=== PATIENT | female | born 1960 | race Caucasian/White ===

== ENCOUNTER 2016-09-11 06:21 | Day surgery (SDC) | payer MEDICARE ==
[~2016-09-11] VITALS: Ht 165.1 cm; Wt 90.7 kg
[~2016-09-11 06:21] MED LIST: COMBIVENT INH14.7 GM INH; LIPITOR10 MG PO; MOBIC7.5 MG PO; NEXIUM40 MG PO; NORCO 5/325 TAB1 TA1 PO; NORCO 7.5-3251 EACH PO; PROAIR HFA8.5 GM INH; VESICARE10 MG PO
[2016-09-11 06:45] LABS: HEMATOCRIT 37.7 % (36.0-48.0); HEMOGLOBIN 11.5 g/dL (12-16); MCH 21.8 pg (26.0-34.0); MCHC 30.5 g/dL (31.0-37.0); MCV 71.4 fL (80.0-100.0); RBC 5.28 10x6/uL (4.00-5.40); RDW 16.4 % (11.5-14.5); WBC 10.9 10x3/uL (4.8-10.8)
[2016-09-11 07:12] VITALS: BP 120/68; Ht 165.1 cm; Wt 90.7 kg
--- NOTE | 2016-09-11 15:03 | NUR ---
1355-PT. ESCORTED VIA WHEELCHAIR TO PERSONAL CAR, LEFT WITH FAMILY MEMBER DRIVING.
--- NOTE | 2016-11-07 10:17 | OP ---
PATIENT NAME: CLEO PENN MEDICAL RECORD: [id number] :58 LOCATION:[facility] ADMISSION DATE: SURGEON: CHERELLE VIVAS MD DATE OF OPERATION: 09/11/2016 PREOPERATIVE DIAGNOSIS: Anal mass. POSTOPERATIVE DIAGNOSIS: Anal mass. PROCEDURE: Single column hemorrhoidectomy with excision of the anal mass. SURGEON: Cherelle Vivas MD PRODUCTION EXPEDITER: None. BLOOD LOSS: Minimal. ANESTHESIA: General. COMPLICATIONS: None. This is a pedunculated verrucous mass, which was at 6 o'clock with the patient in the lithotomy position. OPERATIVE COURSE: The patient was conveyed to the operating room electively on 10/08/2016. General anesthesia was induced by the anesthesia staff. The patient was placed in the lithotomy position. The anus and perianal areas were sterilely prepped and draped. U-shaped anal retractors were placed within the anus. A fixation suture of 3-0 Vicryl was applied at the apex of the internal hemorrhoidal bundle. I then incised the anoderm with the Harmonic scalpel. I swept down the anal sphincter musculature to protect it during the procedure. I then excised the mass along with the hemorrhoidal bundle utilizing the Harmonic scalpel. It was difficult to orient the mass due to its very pedunculated nature. Submucosal flaps were created sharply. I then closed the defect with a running 3-0 Vicryl suture for the anal mucosa and then the same suture in a running intracuticular fashion for the anoderm. I then reinforced the suture line with multiple interrupted horizontal mattress 3-0 Vicryl sutures. A combination of a sterile preparation of Marcaine were used to infiltrate the perianal tissues. Gelfoam was applied within the anus and rectum. A topical anesthetic was applied to the external hemorrhoids. The patient was then extubated and conveyed to post-anesthesia care unit where she was in a stable condition. She will be dismissed home on Colace, Valium as well as hydrocodone. TRANSINT:[id number] Voice Confirmation ID: [id number] DOCUMENT ID: [id number] OPERATIVE REPORT [id number] NASREEN PENNCHERELLE ANTONY MD at 1017 CC: LEONID HAMILTON MD and RYLIE SXAENA M.D. [id number] DICTATION DATE: 09/11/16 1148 MECHANICAL ESTIMATOR: 09/11/16 1200 [facility] 09/11/16 [place] [id number] [place] [id number]
--- NOTE | 2016-11-07 10:17 | HP ---
PATIENT: CLEO PENN MEDICAL RECORD: [id number] ACCOUNT: [id number] LOCATION:[facility] : 58 ADMISSION DATE: 09/11/16 HISTORY AND PHYSICAL EXAMINATION CHIEF COMPLAINT: Anal mass. HISTORY OF PRESENT ILLNESS: The patient has an anal mass that was noted by Dr. Sainz during her recent endoscopy. I have been asked to perform an excisional biopsy. This would essentially be a single column hemorrhoidectomy. The risks, possible complications and alternatives to procedure were explained to the patient. She elects to proceed. HOME MEDICATIONS: Mobic as well as Nexium. ALLERGIES: PENICILLIN WHICH CAUSES HIVES, CODEINE WHICH CAUSES ITCHING, WELL CEPHALEXIN. Reportedly, the patient can take hydrocodone, however. SOCIAL HISTORY: A [id number] smoking history. PAST MEDICAL AND SURGICAL HISTORY: Cholecystectomy, hernia repair, gastroesophageal reflux which is controlled. REVIEW OF SYSTEMS: Negative for CVA or seizures. Negative for diabetes or thyroid problems. Negative for renal disease or hepatitis. PHYSICAL EXAMINATION: GENERAL: The patient does not appear acutely ill. She does not appear chronically ill. VITAL SIGNS: Reviewed. HEAD: External ears appear normal. EYES: Extraocular movements are intact. NECK: Trachea is midline. CHEST: No intercostal retractions. PULMONARY: Nonlabored and no stridor. ABDOMEN: Nontender. EXTREMITIES: No peripheral cyanosis. IMPRESSION: Anal mass. PLAN: Will be single column hemorrhoidectomy with excision of the anal mass. TRANSINT:[id number] Voice Confirmation ID: [id number] DOCUMENT ID: [id number] CHERELLE VIVAS MD at 1017 CC: LEONID SAINZ MD and RYLIE SAXENA M.D. [id number] DICTATION DATE: 09/11/16 1144 SAUSAGE COOKER: 09/11/16 1154 [facility] 09/11/16 [place] [id number]
== END 2016-09-11 13:55 | disposition home or self-care (01) ==
LOC: D.OPS 06:21 → D.PAN 08:15 → D.OPS 08:15 → D.PAN 08:45 → D.OPS 13:55
PROVIDERS: Anesthesiology
DX: B07.9 Viral wart, unspecified (principal); K64.8 Other hemorrhoids; Z79.1 Long term (current) use of non-steroidal anti-inflammatories (NSAID); Z79.899 Other long term (current) drug therapy; Z88.0 Allergy status to penicillin; Z88.5 Allergy status to narcotic agent

== ENCOUNTER 2020-12-22 17:15 | Inpatient (IN) | payer MEDICARE ==
[~2020-12-22] VITALS: Ht 165.1 cm; Wt 72.6 kg
--- NOTE | 2020-12-22 17:56 | NUR ---
PATIENT IV STARTED IN LEFT FA AT THIS TIME. 20G. IV X 1 STICK. PATIENT TOLERATED WITH NO PAIN. CALL LIGHT WITHIN REACH.
[2020-12-22 19:16] LABS: BASOPHILS 0.4 % (0-2); EOSINOPHILS 0.4 % (0-7); IMMATURE GRANULOCYTES 0.1 % (0-5); LYMPHOCYTE ABS# 1.52 10x3/uL (1.18-3.74); LYMPHOCYTES 21.4 % (15-50); MCHC 23.4 g/dL (31.0-37.0); MCV 54.4 fL (80.0-100.0); MONOCYTES 6.9 % (2-11); NEUTROPHIL ABS# 5.02 10x3/uL (1.56-6.13); NEUTROPHILS 70.8 % (40-80); PLATELET COUNT 240 10x3/uL (130-400); RBC 3.62 10x6/uL (4.00-5.40); RDW 20.7 % (11.5-14.5); WBC 7.1 10x3/uL (4.8-10.8)
[2020-12-22 19:21] LABS: HEMATOCRIT 19.7 % (36.0-48.0); HEMOGLOBIN 4.6 g/dL (12-16); MCH 12.7 pg (26.0-34.0)
[2020-12-22 19:49] LABS: ALBUMIN 3.2 g/dL (3.4-5.0); ALKALINE PHOSPHATASE 118 U/L (30-120); ALT (SGPT) 15 U/L (10-68); BILIRUBIN - TOTAL 0.48 mg/dL (0.2-1.3); CALC OSMOLALITY 273 mosm/kg (275-300); CALCIUM 8.9 mg/dL (8.5-10.1); CARBON DIOXIDE 23.8 mmol/L (21.0-32.0); CHLORIDE - SERUM 103 mmol/L (98-107); CKMB 0.3 U/L (0.0-3.6); CREATINE KINASE 26 UL (21-215); CREATININE - SERUM 0.8 mg/dL (0.6-1.3); GLUCOSE 90 mg/dL (74-106); POTASSIUM - SERUM 4.2 mmol/L (3.5-5.1); PROTEIN - SERUM 7.2 g/dL (6.4-8.2); SODIUM 137 mmol/L (136-145); UREA NITROGEN 13 mg/dL (7-18); eGFR NON AFRICAN AMERICAN 77 mL/min (90-120)
[2020-12-22 19:50] LABS: TROPONIN-I < 0.017 ng/mL (0.000-0.060)
[2020-12-22 20:00] VITALS: BP 155/62
[2020-12-22 20:50] VITALS: BP 155/82
[2020-12-22 21:10] VITALS: BP 132/70
[2020-12-22 22:00] VITALS: BP 155/62
[2020-12-22 23:40] VITALS: BP 148/79
[2020-12-22 23:55] VITALS: BP 133/77
[2020-12-23] VITALS (16 sets, daily range): BP systolic 122–190; BP diastolic 57–99; Ht 165.1 cm; Wt 72.6 kg
[2020-12-23 05:54] LABS: APTT 27.4 SECONDS (22.8-39.4); INR 1.2 (0.85-1.17); PROTIME 14.1 SECONDS (11.6-15.0)
[2020-12-23 06:03] LABS: % SATURATION 4 % (15-55); IRON 20 ug/dl (35-150); TOTAL IRON BIND CAPACITY 485 ug/dl (260-445)
[2020-12-23 06:11] LABS: UNSAT IRON BIND CAPACITY 465 ug/dl (150-375)
[2020-12-23 06:26] LABS: ALBUMIN 2.8 g/dL (3.4-5.0); ALKALINE PHOSPHATASE 99 U/L (30-120); ALT (SGPT) 12 U/L (10-68); CALC OSMOLALITY 275 mosm/kg (275-300); CALCIUM 8.7 mg/dL (8.5-10.1); CARBON DIOXIDE 23.2 mmol/L (21.0-32.0); CHLORIDE - SERUM 106 mmol/L (98-107); CREATININE - SERUM 0.7 mg/dL (0.6-1.3); FERRITIN 3 ng/mL (3-244); GLUCOSE 86 mg/dL (74-106); LDH 152 U/L (81-234); MAGNESIUM - SERUM 1.9 mg/dL (1.8-2.4); PHOSPHOROUS 3.1 mg/dL (2.5-4.9); POTASSIUM - SERUM 3.8 mmol/L (3.5-5.1); PROTEIN - SERUM 6.4 g/dL (6.4-8.2); SODIUM 139 mmol/L (136-145); UREA NITROGEN 11 mg/dL (7-18); eGFR NON AFRICAN AMERICAN 90 mL/min (90-120)
--- NOTE | 2020-12-23 08:10 | NUR ---
RECIEVED BEDSIDE REPORT. BED LOW POSITION, CALL LIGHT IN REACH. DENIES NEEDS AT THIS TIME. GI LAB HERE TO TAKE PT TO PROCEDURE. LEFT UNIT VIA BED.
[2020-12-23 08:21] LABS: BASOPHILS 0.4 % (0-2); EOSINOPHILS 1.3 % (0-7); HEMATOCRIT 23.2 % (36.0-48.0); IMMATURE GRANULOCYTES 0.2 % (0-5); LYMPHOCYTE ABS# 1.57 10x3/uL (1.18-3.74); LYMPHOCYTES 33.3 % (15-50); MCHC 27.2 g/dL (31.0-37.0); MONOCYTES 8.7 % (2-11); NEUTROPHIL ABS# 2.64 10x3/uL (1.56-6.13); NEUTROPHILS 56.1 % (40-80); RBC 3.74 10x6/uL (4.00-5.40); RDW 29.3 % (11.5-14.5); RETIC 0.08 % (0.45-2.28); WBC 4.7 10x3/uL (4.8-10.8)
[2020-12-23 08:23] LABS: HEMOGLOBIN 6.3 g/dL (12-16); MCH 16.8 pg (26.0-34.0); PLATELET COUNT 181 10x3/uL (130-400)
--- NOTE | 2020-12-23 09:30 | NUR ---
BACK IN ROOM FROM PROCEDURE AT THIS TIME.
--- NOTE | 2020-12-23 09:42 | NUR ---
ATTEMPTED TO CALL BEVERLEY DUTTA APN SIX TIMES WITH NO ANSWER TO REPORT CRITICAL LAB VALUE. DR. ARMIJO ORDERED 2 UNIT PRBC'S TO BE TRANSFUSED TODAY.
[2020-12-23 10:27] LABS: HEMATOCRIT 24.2 % (36.0-48.0)
[2020-12-23 10:29] LABS: HEMOGLOBIN 6.6 g/dL (12-16)
[2020-12-23 16:00] LABS: HEMATOCRIT 28.1 % (36.0-48.0); HEMOGLOBIN 8.2 g/dL (12-16)
[2020-12-23 23:06] LABS: HEMATOCRIT 31.6 % (36.0-48.0); HEMOGLOBIN 9.4 g/dL (12-16)
[2020-12-24 00:38] VITALS: BP 167/74
[2020-12-24 05:24] VITALS: BP 150/63
[2020-12-24 07:31] LABS: BASOPHILS 0.4 % (0-2); EOSINOPHILS 0.7 % (0-7); HEMATOCRIT 30.9 % (36.0-48.0); HEMOGLOBIN 9.3 g/dL (12-16); IMMATURE GRANULOCYTES 0.2 % (0-5); LYMPHOCYTE ABS# 1.39 10x3/uL (1.18-3.74); LYMPHOCYTES 24.9 % (15-50); MCH 20.1 pg (26.0-34.0); MCHC 30.1 g/dL (31.0-37.0); MONOCYTES 8.8 % (2-11); NEUTROPHIL ABS# 3.64 10x3/uL (1.56-6.13); PLATELET COUNT 181 10x3/uL (130-400); WBC 5.6 10x3/uL (4.8-10.8)
[2020-12-24 07:32] LABS: MCV 66.7 fL (80.0-100.0); RBC 4.63 10x6/uL (4.00-5.40)
[2020-12-24 07:33] LABS: ALKALINE PHOSPHATASE 123 U/L (30-120); ALT (SGPT) 15 U/L (10-68); BILIRUBIN - TOTAL 1.01 mg/dL (0.2-1.3); CALCIUM 8.6 mg/dL (8.5-10.1); CARBON DIOXIDE 23.1 mmol/L (21.0-32.0); CHLORIDE - SERUM 106 mmol/L (98-107); CREATININE - SERUM 0.7 mg/dL (0.6-1.3); GLUCOSE 81 mg/dL (74-106); MAGNESIUM - SERUM 1.9 mg/dL (1.8-2.4); PHOSPHOROUS 2.9 mg/dL (2.5-4.9); PROTEIN - SERUM 6.8 g/dL (6.4-8.2); SODIUM 141 mmol/L (136-145); eGFR NON AFRICAN AMERICAN 90 mL/min (90-120)
[2020-12-24 07:38] LABS: CALC OSMOLALITY 277 mosm/kg (275-300); POTASSIUM - SERUM 3.2 mmol/L (3.5-5.1); UREA NITROGEN 6 mg/dL (7-18)
--- NOTE | 2020-12-24 07:55 | NUR ---
OFF THE FLOOR TO COLONOSCOPY. SENT REGGARLAND AND AILYN TO SURGERY WITH PT.
--- NOTE | 2020-12-24 08:27 | NUR ---
0755 IV IS NOT PATENT. RESTARTED RT HAND WITH A 22 G JELCO
[2020-12-24 09:29] VITALS: BP 147/72
--- NOTE | 2020-12-24 11:11 | NUR ---
AAOX4 UPON ENTERING. ADMINISTERED MEDICAITON, NO DIFFICULTIES. RECOVERING WELL FROM COLONOSCOPY. REQUESTING FOOD AND TO BE DISCHARGED. DENIES FURTHER NEEDS AT THIS TIME. BED IN LOWEST POSITION BED RAILS X2, CALL LIGHT WITHIN REACH. WILL CONTINUE POC.
--- NOTE | 2020-12-24 11:19 | NUR ---
ATTEMPTING TO REACH HECTOR TO GET DIET ORDER FOR PT.
[2020-12-24 13:11] LABS: CEA 2.2 ng/mL (0.0-4.7)
[2020-12-24 14:22] VITALS: BP 144/84
--- NOTE | 2020-12-24 14:37 | NUR ---
ADAMANT ABOUT HAVING IV OUT OF HAND. REMOVED FROM RIGHT HAND, CATHETER TIP INTACT. COVERED WITH GAUZE AND TAPE. TOLERATED WELL.
--- NOTE | 2020-12-24 15:13 | NUR ---
I have reviewed this patient and I concur with the Shift Assessment completed by the Licensed Practical Nurse today this shift.
--- NOTE | 2020-12-24 19:00 | NUR ---
BEDSIDE REPORT RECEIVED AND CARE OF PT ASSUMED. PT UP AMBULATING IN HALLWAY AT THIS TIME. NO IV SITED. WILL MONITOR FOR NEEDS.
[2020-12-24 19:04] VITALS: BP 143/78
--- NOTE | 2020-12-24 20:06 | NUR ---
NO HS MEDICATIONS ORDERED. PT RESTING IN SUPINE POSITION. WILL CONTINUE TO MONITOR FOR NEEDS.
[2020-12-25 06:42] VITALS: BP 131/77
[2020-12-25 06:52] LABS: BASOPHILS 0.5 % (0-2); EOSINOPHILS 1.4 % (0-7); HEMATOCRIT 32.1 % (36.0-48.0); HEMOGLOBIN 9.4 g/dL (12-16); IMMATURE GRANULOCYTES 0.2 % (0-5); LYMPHOCYTE ABS# 2.39 10x3/uL (1.18-3.74); LYMPHOCYTES 38.4 % (15-50); MCHC 29.3 g/dL (31.0-37.0); MCV 67.3 fL (80.0-100.0); MONOCYTES 7.5 % (2-11); NEUTROPHIL ABS# 3.24 10x3/uL (1.56-6.13); PLATELET COUNT 193 10x3/uL (130-400); RBC 4.77 10x6/uL (4.00-5.40); WBC 6.2 10x3/uL (4.8-10.8)
[2020-12-25 06:57] LABS: MCH 19.7 pg (26.0-34.0)
[2020-12-25 07:25] LABS: ALKALINE PHOSPHATASE 117 U/L (30-120); ALT (SGPT) 17 U/L (10-68); BILIRUBIN - TOTAL 0.83 mg/dL (0.2-1.3); CALC OSMOLALITY 280 mosm/kg (275-300); CALCIUM 8.8 mg/dL (8.5-10.1); CARBON DIOXIDE 22.8 mmol/L (21.0-32.0); CHLORIDE - SERUM 108 mmol/L (98-107); CREATININE - SERUM 0.8 mg/dL (0.6-1.3); GLUCOSE 76 mg/dL (74-106); MAGNESIUM - SERUM 1.9 mg/dL (1.8-2.4); PHOSPHOROUS 3.8 mg/dL (2.5-4.9); POTASSIUM - SERUM 3.1 mmol/L (3.5-5.1); PROTEIN - SERUM 6.6 g/dL (6.4-8.2); SODIUM 142 mmol/L (136-145); UREA NITROGEN 9 mg/dL (7-18); eGFR NON AFRICAN AMERICAN 77 mL/min (90-120)
[2020-12-25 09:47] VITALS: BP 144/73
[2020-12-25] MEDS ORDERED: FOLIC ACID1 MG PO (13:40)
--- NOTE | 2020-12-25 14:19 | MORECARE ---
CASE MANAGEMENT DISCHARGE SUMMARY PATIENT: CLEO PENN UNIT: [id number] ADM DATE: 12/22/20 AGE: 60 : 58 SEX: F ROOM/BED: [facility]8 AUTHOR: LOYDDOC PHYSICIAN: REFERRING PHYSICIAN: KIKI GAMING MD DATE OF SERVICE: 12/25/20 Case Management Discharge Planning Summary DCP REVIEW SUMMARY ANTICIPATED D/C DATE: 12/25/2020 EXPECTED LOS : 3 CASE STATUS: DCP Complete INITIAL REVIEW: 12/22/2020 INITIAL REVIEWER: Marianna Haley FINAL DISCHARGE DISPOSITION: 01 : Home or Self Care (Routine Discharge) FINAL REVIEWER: FINAL REVIEW DATE: DCP Focus Questions & Answers QUESTION: ANSWER : PATIENT: CLEO PENN ENCOUNTER: [id number] MEDICAL RECORD#: [id number] ADMISSION DATE: 12/22/2020 DISCHARGE DATE: ATTENDING MD: KIKI OREILLY : AGE: 60 MARITAL STATUS: S DC PLAN ID: [id number] FACILITY: [facility] PRINTED ON: 12/25/20 14:19 CT All edits/amendments must be made on the electronic document DICTATION DATE: 12/25/201418 PLANT ACCOUNTANT: TRELL 12/25/20 141 RPT#: [id number] DC DATE: STATUS: ADM IN [facility] [address] [place] [address] END OF REPORT
--- NOTE | 2020-12-25 14:51 | MORECARE ---
CASE MANAGEMENT DISCHARGE SUMMARY PATIENT: CLEO PENN UNIT: [id number] ADM DATE: 12/22/20 AGE: 60 : 58 SEX: F ROOM[facility]BED: [facility] AUTHOR: LOYDDOC PHYSICIAN: REFERRING PHYSICIAN: KIKI GAMING MD DATE OF SERVICE: 12/25/20 Case Management Discharge Planning Summary DCP REVIEW SUMMARY ANTICIPATED D/C DATE: 12/25/2020 EXPECTED LOS : 3 CASE STATUS: DCP Complete INITIAL REVIEW: 12/22/2020 INITIAL REVIEWER: Marianna Haley FINAL DISCHARGE DISPOSITION: 01 : Home or Self Care (Routine Discharge) FINAL REVIEWER: FINAL REVIEW DATE: DCP Focus Questions & Answers DCP Screen QUESTION: ANSWER High Risk Factors: : None Walking limitation: Patient stated self rated walking limitation present? : No Age: : 45 - 63 Prior living environment: : Lives with others Disability ranking: : Grade 2: Slight disability DCP Evaluation QUESTION: ANSWER Patient's ability to cope with chronic illness : d. No chronic illness Would patient like to participate in any Care Coordination programs (if applicable): : Not applicable Mental health screen: : No mental health history DCP Re-evaluation QUESTION: ANSWER Would patient like to participate in any Care Coordination programs (if applicable): : Not applicable PATIENT: CLEO PENN ENCOUNTER: [id number] MEDICAL RECORD#: [id number] ADMISSION DATE: 12/22/2020 DISCHARGE DATE: ATTENDING MD: KIKI OREILLY : AGE: 60 MARITAL STATUS: S DC PLAN ID: [id number] FACILITY: [facility] PRINTED ON: 12/25/20 14:51 CT All edits/amendments must be made on the electronic document DICTATION DATE: 12/25/20 145 HARDWARE DEVELOPER: DM 12/25/20 1450 RPT#: [id number] DC DATE: STATUS: ADM IN [facility] [address] [place] [address] END OF REPORT
[2020-12-25] MEDS ORDERED: NICODERM CQ1 EAC2 TOPICAL (14:52)
--- NOTE | 2020-12-25 14:53 | NUR ---
AWAITING DISCHARGE PAPERWORK.
--- NOTE | 2020-12-25 15:02 | MORECARE ---
CASE MANAGEMENT DISCHARGE SUMMARY PATIENT: CLEO PENN UNIT: [id number] ADM DATE: 12/22/20 AGE: 60 : 58 SEX: F ROOM/BED: D.2218 AUTHOR: MAGALY HARP PHYSICIAN: REFERRING PHYSICIAN: KIKI GAMING MD DATE OF SERVICE: 12/25/20 Case Management Discharge Planning Summary DCP REVIEW SUMMARY ANTICIPATED D/C DATE: 12/25/2020 EXPECTED LOS : 3 CASE STATUS: DCP Complete INITIAL REVIEW: 12/22/2020 INITIAL REVIEWER: Marianna Haley FINAL DISCHARGE DISPOSITION: 01 : Home or Self Care (Routine Discharge) FINAL REVIEWER: FINAL REVIEW DATE: DCP Focus Questions & Answers DCP Screen QUESTION: ANSWER High Risk Factors: : None Walking limitation: Patient stated self rated walking limitation present? : No Age: : 45 - 63 Prior living environment: : Lives with others Disability ranking: : Grade 2: Slight disability DCP Evaluation QUESTION: ANSWER Patient's ability to cope with chronic illness : a. Adequate (0-3 ED visits in 6 mos., adequate financial resources, attends scheduled appts.) Patient's current cognitive status: : *Oriented to person, place, situation, time and present Physical Status: : Independent with ADL's Family / Caregiver's ability to cope with chronic illness: : a. Adequate (ability to meet patient's medical needs, ensures patient attends medical appts.) Living Arrangements: : Home with Parents Baseline cognitive status: : *Oriented to person, place, situation, time and present Baseline cognitive status: : Alert Patient with capacity for self-care or can be cared for in same environment as prior to hospitalization? : Yes Medication Management: : Patient states can afford medications Pharmacy name(s): : [facility] Does Patient have transportation to get home and to follow-up medical appointments when discharged from the hospital? : Yes Would patient like to participate in any Care Coordination programs (if applicable): : Not applicable Comments: : Mother provides transportation to appointments Does the patient have electricity at home? : Yes Does the patient have running water in their house? : Yes Equipment in use: : None Mental health screen: : No mental health history Abuse/Neglect: : None DCP Re-evaluation QUESTION: ANSWER Would patient like to participate in any Care Coordination programs (if applicable): : Not applicable PATIENT: CLEO PENN ENCOUNTER: [id number] MEDICAL RECORD#: [id number] ADMISSION DATE: 12/22/2020 DISCHARGE DATE: ATTENDING MD: KIKI OREILLY : AGE: 60 MARITAL STATUS: S DC PLAN ID: [id number] FACILITY: [facility] PRINTED ON: 12/25/20 15:01 CT All edits/amendments must be made on the electronic document DICTATION DATE: 12/25/20 150 PAVING PLANT OPERATOR: TRELL 12/25/20 150 RPT#: [id number] DC DATE: STATUS: ADM IN [facility] [address] [place] [address] END OF REPORT
--- NOTE | 2020-12-25 15:13 | MORECARE ---
CASE MANAGEMENT DISCHARGE SUMMARY PATIENT: CLEO PENN UNIT: [id number] ADM DATE: 12/22/20 AGE: 60 : 58 SEX: F ROOM/BED: D.2218 AUTHOR: MAGALY HARP PHYSICIAN: REFERRING PHYSICIAN: KIKI GAMING MD DATE OF SERVICE: 12/25/20 Case Management Discharge Planning Summary COMMENTS ENTERED DATE: 12/25/20 14:57 CT COMMENT TYPE: Discharge Planning REVIEWER: Marianna Haley Cm met with patient to complete discharge plan and needs. Patient lives at home with her parents and is independent with all ADLs. She states she is able to ambulate without assistive devices and declines HHS, SNF, IPR and DME services at this time. Patient's mother was present in the room and will provide transportation. DC IMM delivered, explained, signed by the patient and copy left in chart. CM will continue to follow and assist as needed. DCP REVIEW SUMMARY ANTICIPATED D/C DATE: 12/25/2020 EXPECTED LOS : 3 CASE STATUS: DCP Complete INITIAL REVIEW: 12/22/2020 INITIAL REVIEWER: Marianna Haley FINAL DISCHARGE DISPOSITION: 01 : Home or Self Care (Routine Discharge) FINAL REVIEWER: FINAL REVIEW DATE: DCP Focus Questions & Answers DCP Screen QUESTION: ANSWER High Risk Factors: : None Walking limitation: Patient stated self rated walking limitation present? : No Age: : 45 - 63 Prior living environment: : Lives with others Disability ranking: : Grade 2: Slight disability DCP Evaluation QUESTION: ANSWER Patient's ability to cope with chronic illness : a. Adequate (0-3 ED visits in 6 mos., adequate financial resources, attends scheduled appts.) Patient's current cognitive status: : *Oriented to person, place, situation, time and present Physical Status: : Independent with ADL's Family / Caregiver's ability to cope with chronic illness: : a. Adequate (ability to meet patient's medical needs, ensures patient attends medical appts.) Living Arrangements: : Home with Parents Baseline cognitive status: : *Oriented to person, place, situation, time and present Baseline cognitive status: : Alert Patient with capacity for self-care or can be cared for in same environment as prior to hospitalization? : Yes Medication Management: : Patient states can afford medications Pharmacy name(s): : [facility] Does Patient have transportation to get home and to follow-up medical appointments when discharged from the hospital? : Yes Would patient like to participate in any Care Coordination programs (if applicable): : Not applicable Comments: : Mother provides transportation to appointments Does the patient have electricity at home? : Yes Does the patient have running water in their house? : Yes Equipment in use: : None Mental health screen: : No mental health history Abuse/Neglect: : None DCP Re-evaluation QUESTION: ANSWER Would patient like to participate in any Care Coordination programs (if applicable): : Not applicable PATIENT: CLEO PENN ENCOUNTER: [id number] MEDICAL RECORD#: [id number] ADMISSION DATE: 12/22/2020 DISCHARGE DATE: ATTENDING MD: KIKI OREILLY : AGE: 60 MARITAL STATUS: S DC PLAN ID: [id number] FACILITY: [facility] PRINTED ON: 12/25/20 15:13 CT All edits/amendments must be made on the electronic document DICTATION DATE: 12/25/201512 GRADUATE RESEARCH ASSISTANT: TRELL 12/25/201512 RPT#: [id number] DC DATE: STATUS: ADM IN [facility] [address] [place] [address] END OF REPORT
--- NOTE | 2020-12-25 15:16 | NUR ---
SIGNED ALL [place] DISCHARGE PAPERWORK. NO IV OR TELEMETRY TO REMOVE. PT DRESSED SELF AND WALKED TO ER, DECLINED NEED FOR WHEELCHAIR OR ASSISTANCE. DENIES ANY NEEDS FROM HOSPITAL/STAFF.
--- NOTE | 2020-12-25 15:26 | MORECARE ---
CASE MANAGEMENT DISCHARGE SUMMARY PATIENT: CLEO PENN UNIT: [id number] ADM DATE: 12/22/20 AGE: 60 : 58 SEX: F ROOM/BED: D.2218 AUTHOR: MAGALY HARP PHYSICIAN: REFERRING PHYSICIAN: KIKI GAMING MD DATE OF SERVICE: 12/25/20 Case Management Discharge Planning Summary COMMENTS ENTERED DATE: 12/25/20 14:57 CT COMMENT TYPE: Discharge Planning REVIEWER: Marianna Haley Cm met with patient to complete discharge plan and needs. Patient lives at home with her parents and is independent with all ADLs. She states she is able to ambulate without assistive devices and declines HHS, SNF, IPR and DME services at this time. Patient's mother was present in the room and will provide transportation. DC IMM delivered, explained, signed by the patient and copy left in chart. CM will continue to follow and assist as needed. DCP REVIEW SUMMARY ANTICIPATED D/C DATE: 12/25/2020 EXPECTED LOS : 3 CASE STATUS: DCP Complete INITIAL REVIEW: 12/22/2020 INITIAL REVIEWER: Marianna Haley FINAL DISCHARGE DISPOSITION: 01 : Home or Self Care (Routine Discharge) FINAL REVIEWER: FINAL REVIEW DATE: DCP Focus Questions & Answers DCP Screen QUESTION: ANSWER High Risk Factors: : None Walking limitation: Patient stated self rated walking limitation present? : No Age: : 45 - 64 Prior living environment: : Lives with others Disability ranking: : Grade 2: Slight disability DCP Evaluation QUESTION: ANSWER Patient's ability to cope with chronic illness : a. Adequate (0-3 ED visits in 6 mos., adequate financial resources, attends scheduled appts.) Patient's current cognitive status: : *Oriented to person, place, situation, time and present Physical Status: : Independent with ADL's Family / Caregiver's ability to cope with chronic illness: : a. Adequate (ability to meet patient's medical needs, ensures patient attends medical appts.) Living Arrangements: : Home with Parents Baseline cognitive status: : *Oriented to person, place, situation, time and present Baseline cognitive status: : Alert Patient with capacity for self-care or can be cared for in same environment as prior to hospitalization? : Yes Medication Management: : Patient states can afford medications Pharmacy name(s): : [facility] Does Patient have transportation to get home and to follow-up medical appointments when discharged from the hospital? : Yes Would patient like to participate in any Care Coordination programs (if applicable): : Not applicable Comments: : Mother provides transportation to appointments Does the patient have electricity at home? : Yes Does the patient have running water in their house? : Yes Equipment in use: : None Mental health screen: : No mental health history Abuse/Neglect: : None DCP Re-evaluation QUESTION: ANSWER Would patient like to participate in any Care Coordination programs (if applicable): : Not applicable PATIENT: CLEO PENN ENCOUNTER: [id number] MEDICAL RECORD#: [id number] ADMISSION DATE: 12/22/2020 DISCHARGE DATE: 12/25/2020 ATTENDING MD: KIKI OREILLY : AGE: 60 MARITAL STATUS: S DC PLAN ID: [id number] FACILITY: [facility] PRINTED ON: 12/25/20 15:25 CT All edits/amendments must be made on the electronic document DICTATION DATE: 12/25/20 1525 PROCESSOR GRAIN: TRELL 12/25/20 1525 RPT#: [id number] DC DATE:12/25/20 STATUS: DIS IN [facility] [address] [place] [address] END OF REPORT
== END 2020-12-25 15:19 | disposition home or self-care (01) | DRG 812 ==
LOC: D.MS 17:15
PROVIDERS: Family Medicine; Surgery; ADMIT Family Medicine; ATTEND Family Medicine
PROC: 0DB48ZX Excision of Esophagogastric Junction, Via Natural or Artificial Opening Endoscopic, Diagnostic (ICD-10-PCS; principal; 2020-12-23 08:15)
PROC: 0DJD8ZZ Inspection of Lower Intestinal Tract, Via Natural or Artificial Opening Endoscopic (ICD-10-PCS; 2020-12-24)
DX: D50.9 Iron deficiency anemia, unspecified (principal); E78.5 Hyperlipidemia, unspecified; K21.9 Gastro-esophageal reflux disease without esophagitis; Z87.820 Personal history of traumatic brain injury; R53.1 Weakness; R06.02 Shortness of breath; Z72.0 Tobacco use; K64.4 Residual hemorrhoidal skin tags